=== PATIENT | female | born 1945 | race African-American/Black ===

== ENCOUNTER 2019-11-18 16:25 | Emergency (ER) | payer MEDICARE ==
[2019-11-18] MEDS ORDERED: Ondansetron ODT 4 MG TAB ONE (16:57)
[2019-11-18] MEDS ORDERED: Meclizine HCl 25 MG TAB ONE (17:24)
[2019-11-18 17:34] LABS: #Lymphocytes 1.1 thou/uL (1.20-3.40); #Monocytes 0.5 thou/uL (0.11-0.59); #Neutrophils 3.9 thou/uL (1.40-6.50); %Basophils 0.7 % (0.0-1.0); %Eosinophils 0.3 % (0.0-10.0); %Lymphocytes 20.5 % (21.0-51.0); %Monocytes 8.3 % (0.0-10.0); %Neutrophils 70.3 % (42.0-75.0); Hemoglobin 16.7 g/dL (12.0-16.0); Hypochromia SLIGHT = 6-15 cells (100X) (0-5/hpf); MDiff Complete? YES; Mean Corpuscular HGB CONC 29.6 g/dL (32.0-36.0); Mean Corpuscular Hemoglobin 26.2 pg (27.0-31.0); Mean Corpuscular Volume 88.7 fL (78.0-98.0); Mean Platelet Volume 7.9 fL (7.4-10.4); Platelet Count 244 thou/uL (130-400); Platelet Morphology Comment 1; RBC Distribution Width 16.1 % (11.5-14.5); Red Blood Cell (RBC) Count 6.38 mill/uL (4.20-5.40); White Blood Cell (WBC) Count 5.5 thou/uL (4.8-10.8)
[2019-11-18 17:36] LABS: Anion Gap 19 mmol/L (10-20); BUN (Urea Nitrogen) 19 mg/dL (9.8-20.1); Calc. Creatinine Clearance 0 mL/min (70-130); Calcium 10.2 mg/dL (7.8-10.44); Carbon Dioxide 27 mmol/L (23-31); Chloride 98 mmol/L (98-107); Estimated GFR-MDRD 82; Glucose 108 mg/dL (83-110); Sodium 140 mmol/L (136-145)
[2019-11-18] MEDS ORDERED: Labetalol HCl 100 MG/20 ML VIAL ONE (18:30)
--- NOTE | 2019-11-18 19:11 | CT ---
Head CT without contrast 11/18/2019: Comparison: None HISTORY: Elevated blood pressure, vertigo with nausea TECHNIQUE: Axial CT imaging at 5 mm intervals from vertex through skull base without contrast. Hernández l and sagittal reformatted imaging obtained. FINDINGS: Periventricular hypodensity noted, evidence of small vessel disease. No intracranial hemorr lynda, midline shift, mass effect, or ventricular enlargement. Imaged paranasal sinuses/mastoid air cells grossly unremarkable. No displaced calvarial fracture. IMPRESSION: No acute findings.
[2019-11-18] MEDS ORDERED: Acetaminophen 325 MG TAB ONE (19:41)
[2019-11-18] MEDS ORDERED: Aspirin Chewable 81 MG TAB ONE (19:41)
== END 2019-11-18 20:03 | disposition short-term general hospital (02) ==
LOC: MADERS 16:25
DX: I16.1 Hypertensive emergency (principal); M06.9 Rheumatoid arthritis, unspecified; F17.210 Nicotine dependence, cigarettes, uncomplicated; Z79.899 Other long term (current) drug therapy
CPT/HCPCS: 36415; 70450; 80048; 85025; 93005; 96374; Q0162